=== PATIENT | female | born 1945 | race Caucasian/White ===

== ENCOUNTER 2018-10-22 09:40 | Day surgery (SDC) | payer MEDICARE ==
[~2018-10-22] VITALS: Ht 160 cm; Wt 87.5 kg
[~2018-10-22 09:40] MED LIST: AMLODIPINE5 MG PO; AVAPRO300 MG PO; BIOTIN5000 MCG PO; CARVEDILOL6.25 MG PO; CRESTOR20 MG PO; HYDROCHLOROTH12.5 MG PO; MILK THISTLE250 MG PO; NACL IV; PAROXETINE20 MG PO; TEMAZEPAM15 MG PO; ZYRTEC10 MG PO; [UNRECOGNIZED DRUG - CODE] PO; [UNRECOGNIZED DRUG - OTHER] PO; [UNRECOGNIZED DRUG - OTHER] PO
[2018-10-22 12:03] VITALS: BP 103/60
== END 2018-10-22 12:11 | disposition home or self-care (01) ==
LOC: ENDO 09:40 → ORM 20:45 → ENDO 20:45 → ORM 22:15 → ENDO 22:15
PROVIDERS: ATTEND Internal Medicine Gastroenterology
PROC: 0DBG8ZX Excision of Left Large Intestine, Via Natural or Artificial Opening Endoscopic, Diagnostic (ICD-10-PCS; principal; 2018-10-22)
PROC: 0DBN8ZX Excision of Sigmoid Colon, Via Natural or Artificial Opening Endoscopic, Diagnostic (ICD-10-PCS; 2018-10-22)
PROC: 0DBF8ZX Excision of Right Large Intestine, Via Natural or Artificial Opening Endoscopic, Diagnostic (ICD-10-PCS; 2018-10-22)
PROC: 0DB98ZX Excision of Duodenum, Via Natural or Artificial Opening Endoscopic, Diagnostic (ICD-10-PCS; 2018-10-22)
PROC: 0DB78ZX Excision of Stomach, Pylorus, Via Natural or Artificial Opening Endoscopic, Diagnostic (ICD-10-PCS; 2018-10-22)
PROC: 0DB48ZX Excision of Esophagogastric Junction, Via Natural or Artificial Opening Endoscopic, Diagnostic (ICD-10-PCS; 2018-10-22)
PROC: 0D758ZZ Dilation of Esophagus, Via Natural or Artificial Opening Endoscopic (ICD-10-PCS; 2018-10-22)
DX: D12.5 Benign neoplasm of sigmoid colon (principal); K57.31 Diverticulosis of large intestine without perforation or abscess with bleeding; K63.5 Polyp of colon; K64.4 Residual hemorrhoidal skin tags; K29.71 Gastritis, unspecified, with bleeding; K31.9 Disease of stomach and duodenum, unspecified; K44.9 Diaphragmatic hernia without obstruction or gangrene; I10 Essential (primary) hypertension; Z86.010 Personal history of colon polyps